=== PATIENT | male | born 1995 | race Asian ===

== ENCOUNTER 2024-02-18 22:13 | Inpatient (IN) | payer OTHER ==
[2024-02-18 23:02] VITALS: BMI 28.1
[2024-02-18] MEDS ORDERED: MAGNESIUM HYDROX 2400MG/30ML ORAL SUSPENSION 30 ML CUP PO PRN (23:26)
[2024-02-18] MEDS ORDERED: LOPERAMIDE HCL 2 MG CAPSULE PO PRN (23:26)
[2024-02-18] MEDS ORDERED: BENZOCAINE/MENTHOL (CHLORASEPTIC ) LOZENGE MM PRN (23:26)
[2024-02-18] MEDS ORDERED: IBUPROFEN 400 MG TABLET (FP) PO PRN (23:26)
[2024-02-18] MEDS ORDERED: ACETAMINOPHEN 325 MG TABLET (FP) PO PRN (23:26)
[2024-02-18] MEDS ORDERED: NALOXONE (NARCAN) HCL 4 MG/0.1 ML SPRAY NS PRN (23:26)
[2024-02-18] MEDS ORDERED: POLYETHYLENE GLYCOL (HEALTHYLAX) 3350 17 GM PACKET PO PRN (23:26)
[2024-02-18] MEDS ORDERED: hydrOXYzine PAMOATE 25 MG CAPSULE (FP) PO PRN (23:26)
[2024-02-18] MEDS ORDERED: DICYCLOMINE HCL 10 MG CAPSULE PO PRN (23:26)
[2024-02-18] MEDS ORDERED: BENZONATATE 200 MG CAPSULE PO PRN (23:26)
[2024-02-18] MEDS ORDERED: BISMUTH SUBSALICYLATE 524 MG/30 ML PO PRN (23:26)
[2024-02-18] MEDS ORDERED: NALOXONE HCL 0.4 MG/ML VIAL IM PRN (23:26)
[2024-02-18] MEDS ORDERED: ONDANSETRON *ODT* 4 MG TABLET SL PRN (23:26)
[2024-02-18] MEDS ORDERED: guaiFENesin 600 MG TABLET.ER (FP) PO PRN (23:26)
[2024-02-18] MEDS ORDERED: METHOCARBAMOL 500 MG TABLET ONE (23:33)
[2024-02-18] MEDS ORDERED: cloNIDine HCL 0.1 MG TABLET ONE (23:33)
[2024-02-18] MEDS ORDERED: IBUPROFEN 600 MG TABLET (FP) PO ONE (23:34)
[2024-02-18] MEDS: cloNIDine HCL 0.1 MG TABLET PO ONE (23:41)
[2024-02-18] MEDS: METHOCARBAMOL 500 MG TABLET PO PRN (23:41)
[2024-02-18] MEDS: IBUPROFEN 600 MG TABLET (FP) PO PRN (23:43)
[2024-02-19] MEDS ORDERED: chlordiazePOXIDE HCL 25 MG CAPSULE ONE (00:57)
[2024-02-19] MEDS: chlordiazePOXIDE HCL 25 MG CAPSULE PO PRN (01:02)
[2024-02-19] MEDS: chlordiazePOXIDE HCL 25 MG CAPSULE PO SCH (05:42)
[2024-02-19] MEDS: PRENATAL VITAMINS W/ FOLIC ACID TABLET (FP) PO SCH (10:18)
[2024-02-19 11:53] LABS: HEMATOCRIT 22.7 % (35.4-49); HEMOGLOBIN 7.1 GM/dL (11.7-16.9); MCH 24.5 pg (25.7-33.7); MCHC 31.5 g/dl (32.0-35.9); MEAN CELL VOLUME 77.9 fl (80-96); MEAN PLT VOLUME 7.5 fl (7.5-11.1); RBC 2.91 M/mm3 (4.00-5.60); RDW 21.1 % (11.9-15.9)
[2024-02-19 12:00] LABS: CHLORIDE 104 mmol/L (98-107); POTASSIUM 3.1 mmol/L (3.5-5.1); SODIUM 140 mmol/L (136-145)
[2024-02-19 12:06] LABS: ALBUMIN 2.8 g/dl (3.4-5.0)
[2024-02-19 12:07] LABS: ANION GAP 10 mmol/L (4-13); BLOOD UREA NITROGEN 10.8 mg/dL (7-18); CALCIUM 8.3 mg/dL (8.5-10.1); CO2 26 mmol/L (21-32)
[2024-02-19 12:08] LABS: GLUCOSE,RANDOM 86 mg/dL (74-106)
[2024-02-19 12:09] LABS: CREATININE 0.5 mg/dL (0.55-1.3)
[2024-02-19 12:10] LABS: SGPT/ALT 161 U/L (13-61)
[2024-02-19 12:11] LABS: TOT PROT 6.1 g/dl (6.4-8.2)
[2024-02-19 12:12] LABS: SGOT/AST 460 U/L (15-37)
[2024-02-19 12:13] LABS: BILIRUBIN,TOTAL 6.2 mg/dL (0.2-1)
[2024-02-19 12:14] LABS: ALK PHOS 247 U/L (45-117)
[2024-02-19 12:59] LABS: WHITE BLOOD COUNT 1.4 K/mm3 (4.0-10.0)
[2024-02-19 13:00] LABS: PLATELET COUNT 23 10^3/uL (134-434)
[2024-02-19] MEDS ORDERED: LORazepam 1 MG TABLET PO PRN (14:25)
[2024-02-19] MEDS: POTASSIUM CHLORIDE ORAL LIQUID 20 MEQ/15 ML PO SCH (14:41)
[2024-02-19] MEDS ORDERED: LORazepam 2 MG TABLET PO SCH (17:00)
[2024-02-19] MEDS: LORazepam 0.5 MG TABLET PO SCH (18:08)
[2024-02-19] MEDS: MELATONIN 5 MG TABLETS PO SCH (23:26)
[2024-02-19] MEDS: THIAMINE 100 MG TABLET PO SCH (23:26)
[2024-02-20] MEDS ORDERED: chlordiazePOXIDE HCL 25 MG CAPSULE PO SCH (05:00)
[2024-02-20 15:03] LABS: HEMATOCRIT 24.9 % (35.4-49); HEMOGLOBIN 7.9 GM/dL (11.7-16.9); MCHC 31.6 g/dl (32.0-35.9); MEAN PLT VOLUME 8.4 fl (7.5-11.1); RBC 3.16 M/mm3 (4.00-5.60); RDW 21.2 % (11.9-15.9)
[2024-02-20 15:09] LABS: WHITE BLOOD COUNT 1.7 K/mm3 (4.0-10.0)
[2024-02-20 15:10] LABS: PLATELET COUNT 33 10^3/uL (134-434)
[2024-02-20 15:31] LABS: POTASSIUM 3.8 mmol/L (3.5-5.1)
[2024-02-20 15:36] LABS: BLOOD UREA NITROGEN 6.4 mg/dL (7-18)
[2024-02-20 15:37] LABS: ALBUMIN 2.8 g/dl (3.4-5.0)
[2024-02-20 15:40] LABS: CREATININE 0.5 mg/dL (0.55-1.3)
[2024-02-20 15:41] LABS: BILIRUBIN,TOTAL 4.8 mg/dL (0.2-1); TOT PROT 6.2 g/dl (6.4-8.2)
[2024-02-21] MEDS ORDERED: chlordiazePOXIDE HCL 10 MG CAPSULE PO PRN
[2024-02-21] MEDS ORDERED: chlordiazePOXIDE HCL 10 MG CAPSULE PO SCH (05:00)
[2024-02-21] MEDS ORDERED: LORazepam 1 MG TABLET PO SCH (05:00)
[2024-02-21] MEDS: LORazepam 0.5 MG TABLET PO SCH (05:26)
[2024-02-21] MEDS: MAG HYDROX/AL HYDROX/SIMETH 30 ML UNIT-DOSE CUP PO PRN (07:36)
[2024-02-21 11:42] LABS: HEMATOCRIT 25.5 % (35.4-49); HEMOGLOBIN 8.1 GM/dL (11.7-16.9); MCH 24.9 pg (25.7-33.7); MCHC 31.9 g/dl (32.0-35.9); MEAN CELL VOLUME 78.3 fl (80-96); MEAN PLT VOLUME 8.5 fl (7.5-11.1); PLATELET COUNT 40 10^3/uL (134-434); RBC 3.26 M/mm3 (4.00-5.60); RDW 21.3 % (11.9-15.9); WHITE BLOOD COUNT 2.6 K/mm3 (4.0-10.0)
[2024-02-21 11:48] LABS: POTASSIUM 4.1 mmol/L (3.5-5.1)
[2024-02-21 11:55] LABS: ALBUMIN 2.8 g/dl (3.4-5.0); BLOOD UREA NITROGEN 5.2 mg/dL (7-18); CALCIUM 9.1 mg/dL (8.5-10.1)
[2024-02-21 11:58] LABS: BILIRUBIN,TOTAL 4.2 mg/dL (0.2-1); CREATININE 0.6 mg/dL (0.55-1.3); TOT PROT 6.2 g/dl (6.4-8.2)
[2024-02-22] MEDS ORDERED: chlordiazePOXIDE HCL 10 MG CAPSULE PO SCH (05:00)
[2024-02-22] MEDS: LORazepam 0.5 MG TABLET PO SCH (05:03)
[2024-02-22 08:15] LABS: HEMATOCRIT 25.3 % (35.4-49); HEMOGLOBIN 8.2 GM/dL (11.7-16.9); MCH 25.4 pg (25.7-33.7); MCHC 32.4 g/dl (32.0-35.9); MEAN CELL VOLUME 78.5 fl (80-96); PLATELET COUNT 55 10^3/uL (134-434); RBC 3.23 M/mm3 (4.00-5.60); RDW 22.6 % (11.9-15.9); WHITE BLOOD COUNT 2.6 K/mm3 (4.0-10.0)
[2024-02-22] MEDS: FERROUS SO4 325 MG TABLET (FP) PO SCH (11:42)
[2024-02-22] MEDS: ACAMPROSATE CALCIUM 333 MG TABLET.DR PO SCH (13:37)
[2024-02-23] MEDS ORDERED: chlordiazePOXIDE HCL 10 MG CAPSULE PO ONE (05:00)
[2024-02-23] MEDS: LORazepam 0.5 MG TABLET PO ONE (05:16)
[2024-02-24 08:43] VITALS: BP 114/73; PULSE 102; RESP 18; TEMP 98
== END 2024-02-24 11:05 | disposition home or self-care (01) | DRG 775 ==
LOC: YASAS 22:13 → Y6N 23:47
PROVIDERS: ADMIT Allergy & Immunology; ATTEND Surgery
PROC: HZ2ZZZZ Detoxification Services for Substance Abuse Treatment (ICD-10-PCS; principal; 2024-02-18)
DX: F10.230 Alcohol dependence with withdrawal, uncomplicated (principal); F10.282 Alcohol dependence with alcohol-induced sleep disorder; F10.24 Alcohol dependence with alcohol-induced mood disorder; F41.9 Anxiety disorder, unspecified; F32.A Depression, unspecified; R94.5 Abnormal results of liver function studies; D64.9 Anemia, unspecified; E87.6 Hypokalemia; D61.818 Other pancytopenia; R74.01 Elevation of levels of liver transaminase levels; W18.39XA Other fall on same level, initial encounter; Y93.89 Activity, other specified; Y92.238 Other place in hospital as the place of occurrence of the external cause; R26.2 Difficulty in walking, not elsewhere classified; Z99.89 Dependence on other enabling machines and devices; Z56.0 Unemployment, unspecified; Z59.00 Homelessness unspecified
CPT/HCPCS: 36415; 80053; 80305; 80307; 82247; 82607; 82728; 82747; 83540; 83550; 84132; 84450; 85014; 85027; 86780; 87811; 93005; 93010

== ENCOUNTER 2024-02-22 23:12 | Emergency (ER) | payer SELFPAY ==
[2024-02-22 23:23] VITALS: BP 109/64; PULSE 84; RESP 18; TEMP 98.4; BMI 28.1
[2024-02-23] MEDS: ACETAMINOPHEN 325 MG TABLET (FP) PO ONE (00:49)
[2024-02-23] MEDS ORDERED: IBUPROFEN 400 MG TABLET (FP) PO ONE (00:53)
[2024-02-23] MEDS: IBUPROFEN 400 MG TABLET (FP) PO ONE (00:56)
== END 2024-02-23 01:49 | disposition home or self-care (01) ==
LOC: JER 23:12
DX: R07.81 Pleurodynia (principal); W19.XXXA Unspecified fall, initial encounter
CPT/HCPCS: 70450-TC; 71045-TC-FY; 99284-25